=== PATIENT | female | born 1970 | race Caucasian/White ===

== ENCOUNTER 2020-09-10 09:41 | Inpatient (IN) ==
--- NOTE | 2020-09-02 15:57 | Anesthesiology Consultation ---
Date of Service September 02, 2020 Assessment & Plan (1) Encounter for pre-operative examination: Chart Review Chart Review: Acceptable Risk for Surgery (pending preop Covid testing results ) and Patient NOT seen in Pre Admission Testing - Check BSG AM DOS Per nursing assessment 09/02/2020 patient denies any recent travel. No known Covid infection in the past 90 days. No known Covid positive contacts or Covid related symptoms. Patient aware of need of preop Covid testing = will await results. History Surgery Operation Date: 09/10/20 11:55 Proposed Procedures p L4-L5 Decompression Fusion Spinal Cord Monitoring - Landen Quiles, Height/Weight Height: 5 ft 1 in Weight: 111.13 kg Allergies Allergy/AdvReac Type Severity Reaction Status Date / Time sertraline Allergy Unknown RASH Verified 09/02/20 13:50 lurasidone [From Latuda] AdvReac Vomiting Verified 09/02/20 13:50 Medications Home Medications Medication Instructions Recorded Confirmed Last Taken alprazolam 0.5 - 1 mg PO BID PRN 09/02/20 09/02/20 Unknown ascorbic acid (vitamin C) [Vitamin 1 g PO HS 09/02/20 09/02/20 Unknown C] aspirin [Aspir-81] 81 mg PO QAM 09/02/20 09/02/20 Unknown atorvastatin 10 mg PO QAM 09/02/20 09/02/20 Unknown biotin 1,000 mcg PO DAILY 09/02/20 09/02/20 Unknown bupropion HCl 150 mg PO QAM 09/02/20 09/02/20 Unknown cariprazine [Vraylar] 3 mg PO DAILY 09/02/20 09/02/20 Unknown cariprazine [Vraylar] 6 mg PO DAILY 09/02/20 09/02/20 Unknown cetirizine 10 mg PO HS 09/02/20 09/02/20 Unknown cholecalciferol (vitamin D3) 50 mcg PO QAM 09/02/20 09/02/20 Unknown [Vitamin D3] ipratropium-albuterol [Combivent 1 puff INHALATION QID PRN 09/02/20 09/02/20 Unknown Respimat] lamotrigine [Lamictal] 200 mg PO BID 09/02/20 09/02/20 Unknown liraglutide [Victoza 2-Paul] 1.8 mg SUBCUT HS 09/02/20 09/02/20 Unknown losartan 50 mg PO QAM 09/02/20 09/02/20 Unknown montelukast 10 mg PO HS 09/02/20 09/02/20 Unknown multivitamin 1 tab PO QAM 09/02/20 09/02/20 Unknown omega 0-keh-esc-fish oil [Fish Oil] 1 cap PO 3XWK 09/02/20 09/02/20 Unknown omeprazole 20 mg PO QAM 09/02/20 09/02/20 Unknown prazosin 1 mg PO DAILY 09/02/20 09/02/20 Unknown tramadol 50 mg PO Q6H PRN 09/02/20 09/02/20 Unknown trazodone 300 mg PO DAILY 09/02/20 09/02/20 Unknown vortioxetine [Trintellix] 5 mg PO QAM 09/02/20 09/02/20 Unknown Past Medical History Medical History Anxiety Asthma rare use of PRN inh Depression DM type 2 (diabetes mellitus, type 2) HTN (hypertension) Morbid obesity Osteoarthritis PTSD (post-traumatic stress disorder) Schizoaffective disorder, chronic condition Past Family History Family History Other No family history of adverse response to anesthesia Past Surgical History Surgical History History of appendectomy History of arthroscopic knee surgery BL History of cholecystectomy History of colonoscopy History of hysterectomy History of wisdom tooth extraction Social History Smoking Status: Former smoker Do You Dip or Chew Tobacco: No Smoking End Date: quit at age 20 Hx Alcohol Use: Yes Alcohol type: beer, wine and hard liquor alcohol intake frequency: a few times a month Hx Substance Use: No substance use type: does not use Lab Results Anesthesia Preop Results Results Anesthesia Widget: WBC 8.47 K/uL (4.8-10.8) 08/29/20 Hgb 13.1 g/dL (12.0-16.0) 08/29/20 Hct 39.2 % (37-47) 08/29/20 Plt 229 K/uL (130-400) 08/29/20 Na 137 mmol/L (136-145) 08/29/20 K 4.0 mmol/L (3.5-5.1) 08/29/20 Cl 104 mmol/L (98-107) 08/29/20 CO2 26 mmol/L (21-32) 08/29/20 BUN 18 mg/dl (7-18) 08/29/20 Creat 0.75 mg/dl (0.6-1.2) 08/29/20 Glucose Level 101 mg/dl (70-99) H 08/29/20 PT 9.9 Seconds (9.0-12.0) 08/29/20 INR 1.0 (0.9-1.1) 08/29/20 Urine Color Yellow 08/29/20 Urine Appearance Clear (Clear) 08/29/20 Urine pH 6.0 (4.5-7.5) 08/29/20 Urine Specific [place] 1.019 (1.000-1.030) 08/29/20 Urine Protein Negative (Negative) 08/29/20 Urine Glucose (UA) Negative (Negative) 08/29/20 Urine Ketones Negative (Negative) 08/29/20 Urine Blood Negative (Negative) 08/29/20 Urine Nitrite Negative (Negative) 08/29/20 Urine Bilirubin Negative (Negative) 08/29/20 Urine Urobilinogen Negative (Negative) 08/29/20 Urine Leukocyte Esterase Negative (Negative) 08/29/20 Blood Type O Positive 08/29/20 Antibody Screen NEGATIVE 08/29/20 Testing Laboratory Results 08/29/2020 = URINE CULTURE: 3 types of organisms present, all low counts probable skin pastora. Electrocardiogram Date: 08/29/20 Findings: + NSR @ (87 bpm) Normal EKG per cardio. Chest X-Ray Date: 08/29/20 Findings: + NAD
[~2020-09-10 09:41] MED LIST: ACETAMINOPHEN 500 MG TAB PO SCH; CeleBREX 200 MG CAP PO SCH; GABAPENTIN 900 MG DOSE PO SCH; LR 15ML/HR IV SCH; ceFAZolin 2000MG 2,000 MG/15 ML SYR IV SCH
[2020-09-10] MEDS ORDERED: HYDROmorphone INJ 1 MG/ML SYRINGE IV PRN ×2 (10:29→15:08)
[2020-09-10] MEDS ORDERED: ePHEDrine sulfate 50 MG/ML AMP IV PRN (10:29)
[2020-09-10] MEDS ORDERED: ONDANSETRON INJ 2 MG/ML 2 ML VIAL IV PRN ×2 (10:29→15:08)
[2020-09-10] MEDS ORDERED: LABETALOL HCL IV 5 MG/ML 20ML IV PRN (10:29)
[2020-09-10] MEDS ORDERED: ATROPINE SULFATE 0.1 MG/ML 10ML SYR IV PRN (10:29)
[2020-09-10] MEDS ORDERED: MEPERIDINE HCL 25 MG/ML CARP/VIAL IV PRN (10:29)
[2020-09-10] MEDS ORDERED: PHENYLEPHRINE 100MCG/ML 5ML SYR IV PRN (10:29)
[2020-09-10] MEDS ORDERED: DEXAMETHASONE SOD INJ 4 MG/ML VIAL ONE (11:02)
[2020-09-10] MEDS ORDERED: SCOPOLAMINE 1 MG TDSY TD ONE ×2 (11:02→11:05)
[2020-09-10] MEDS ORDERED: LIDOCAINE 2% 2 ML VIAL/AMP(20MG/ML) INFIL ONE (11:02)
[2020-09-10] MEDS ORDERED: ONDANSETRON INJ 2 MG/ML 2 ML VIAL ONE (11:02)
[2020-09-10] MEDS ORDERED: PROPOFOL IV EMULSION 10 MG/ML 20 ML VIAL IV ONE ×2 (11:02→13:03)
[2020-09-10] MEDS ORDERED: ROCURONIUM BROMIDE 10 MG/ML 5 ML VIAL IV ONE ×4 (11:02→12:12)
[2020-09-10] MEDS ORDERED: fentaNYL citrate 100 MCG/2 ML VIAL ONE ×2 (11:02→13:05)
[2020-09-10] MEDS ORDERED: MIDAZOLAM HCL 1 MG/ML 2ML VIAL ONE (11:03)
[2020-09-10] MEDS ORDERED: BUPIVACAINE/EPINEPHRINE 0.5% MPF 1:200,000 30 ML VIAL ONE (11:09)
--- NOTE | 2020-09-10 11:31 | History & Physical Bridge Note ---
Date of Service September 10, 2020 History & Physical Bridge Note I have examined the patient, reviewed the History & Physical and in the interval since the performance of the History & Physical I have noted the following changes of clinical significance: no changes noted
--- NOTE | 2020-09-10 11:33 | History & Physical Report ---
Date of Service September 10, 2020 Assessment & Plan (1) Neurogenic claudication due to lumbar spinal stenosis: Admission and Anticipated Discharge Date Admission Date: L4-L5 decompression fusion History of Present Illness Chief Complaint: Back and leg pain Primary Care Provider: Christina Fowler PA-C This is a 50-year-old female who presents with chronic persistent back and leg pain. Failing course of nonoperative care she is here for surgical invention. Allergies Allergy/AdvReac Type Severity Reaction Status Date / Time sertraline Allergy Unknown RASH Verified 09/10/20 10:08 lurasidone [From Latuda] AdvReac Vomiting Verified 09/10/20 10:08 Home Medications Medication Instructions Recorded Confirmed Type alprazolam 0.5 - 1 mg PO BID PRN 09/02/20 09/10/20 History ascorbic acid (vitamin C) [Vitamin 1 g PO QPM 09/02/20 09/10/20 History C] aspirin [Aspir-81] 81 mg PO QAM 09/02/20 09/10/20 History atorvastatin 10 mg PO QAM 09/02/20 09/10/20 History biotin 1,000 mcg PO HS 09/02/20 09/10/20 History bupropion HCl 150 mg PO QAM 09/02/20 09/10/20 History cariprazine [Vraylar] 3 mg PO HS 09/02/20 09/10/20 History cariprazine [Vraylar] 6 mg PO HS 09/02/20 09/10/20 History cetirizine 10 mg PO QPM 09/02/20 09/10/20 History cholecalciferol (vitamin D3) 50 mcg PO QAM 09/02/20 09/10/20 History [Vitamin D3] ipratropium-albuterol [Combivent 1 puff INHALATION QID PRN 09/02/20 09/10/20 History Respimat] lamotrigine [Lamictal] 200 mg PO BID 09/02/20 09/10/20 History liraglutide [Victoza 2-Paul] 1.8 mg SUBCUT QPM 09/02/20 09/10/20 History losartan 50 mg PO QAM 09/02/20 09/10/20 History montelukast 10 mg PO QPM 09/02/20 09/10/20 History multivitamin 1 tab PO QAM 09/02/20 09/10/20 History omega 8-gvm-lvp-fish oil [Fish Oil] 1 cap PO 3XWK 09/02/20 09/10/20 History omeprazole 20 mg PO QAM 09/02/20 09/10/20 History prazosin 1 mg PO HS 09/02/20 09/10/20 History tramadol 50 mg PO Q6H PRN 09/02/20 09/10/20 History trazodone 300 mg PO HS 09/02/20 09/10/20 History vortioxetine [Trintellix] 5 mg PO QAM 09/02/20 09/10/20 History Past Med/Surg History Medical History Anxiety Asthma rare use of PRN inh Depression DM type 2 (diabetes mellitus, type 2) HTN (hypertension) Morbid obesity Osteoarthritis PTSD (post-traumatic stress disorder) Schizoaffective disorder, chronic condition Surgical History History of appendectomy History of arthroscopic knee surgery BL History of cholecystectomy History of colonoscopy History of hysterectomy History of wisdom tooth extraction Family History Other No family history of adverse response to anesthesia Social History Smoking Status: Former smoker Smoking End Date: quit at age 20; Second Hand Exposure: No; Do You Dip or Chew Tobacco: No; Tobacco Cessation Education Requested by Patient: No Hx Alcohol Use: Yes Alcohol type: beer, wine and hard liquor Hx Substance Use: No Preferred Language: Greek Communication Ability: Effective Inbound Customer Service Agent Required: No Beliefs That Will Affect Care: None Current Living Situation: Spouse Feels Safe at Home: Yes Safety Concerns: Feels Safe At This Time Assistive Devices: Contacts Physical Exam Physical Exam: Patient is alert and oriented Heart regular in rhythm Lungs clear to auscultation Results & Data ([facility]) Vital Signs (Past 12 Hours) Vital Signs Temp Pulse Resp BP Pulse Ox 09/10/20 10:16 36.8 C 80 20 151/106 H 97
[2020-09-10] MEDS ORDERED: GLYCOPYRROLATE 0.2 MG/ML VIAL ONE (12:47)
[2020-09-10] MEDS ORDERED: FLOSEAL HEMOSTATIC MATRIX 10ML TOP ONE (12:47)
[2020-09-10] MEDS ORDERED: NEOSTIGMINE METHYLSULFATE 1 MG/ML 10ML VIAL ONE (12:47)
--- NOTE | 2020-09-10 13:20 | Operative Report ---
Post Operative Report Pre & Post Diagnosis Operation Date: 09/10/20 11:35 Pre-Op Diagnosis: Spondylolisthesis, Lumbar Region Post-Op Diagnosis: Spondylolisthesis, Lumbar Region I identified the patient and participated in the time-out.: Yes Procedure Operation Date: 09/10/20 11:35 Actual Procedures #1 Lumbar decompression bilateral medial facetectomies and foraminotomies L3-4 and L4-5. #2 posterior spinal fusion L4-5. #3 placement of posterior instrumentation L4-5. #4 interbody fusion L4-5. #5 placed a peek cage 13 x 22 mm at L4-5. #6 placement locally harvested morselized autograft in the posterior gutters. #7 placement of infuse collagen sponge, and master graft in the posterior gutters and I factor interbody space. Surgeon Landen Quiles, DO Calculation Clerk Melody Solano Estimated Blood Loss 150 Findings See Below Patient is 5 foot 1 inches tall weighing over 112 kg with a BMI in excess of 46. The patient's body habitus did contribute to significant technical difficulty requiring her deepest retractors longus instruments in order to perform her procedure. This had at least 50% increase to the operative time. Specimens None Indications This is a 50-year-old female who presents with above-mentioned diagnosis after failing since course of nonoperative care is here for the above-mentioned procedure. Description of Procedure Patient was met with identified informed consent obtained. Patient is then taken to the operative suite underwent a patient placed in a prone position the [place] table top Steven frame. All bony prominences well-padded eyes inspected to ensure no external pressure placed upon the. This point the lumbar spine was prepped and draped in a sterile fashion. Sharp dissection with assistance of Bovie cautery performed down to and exposing the lamina and transverse processes of L4-L5 bilaterally. From caudal cephalad fashion complete laminectomy L4 partial laminectomy L3 was performed including bilateral medial facetectomies and foraminotomies addressing severe lateral recess and foraminal stenosis. P edicle screws were then placed in L4 and L5 bilaterally with assistance of fluoroscopy the proper sized andree placed. By way of a transforaminal approach on right complete discectomy was performed endplates curetted to subcortical bleeding bone and a 13 x 22 mm peek cage filled with I factor tapped in position. The rods then locked in final position bilaterally. The transverse processes of L4 and L5 burred to subcortical bleeding bone. Infuse collagen sponge master graft and local autograft was placed in the posterior gutters. 15 round CLYDE drain inserted. The incision was then closed with 1 Vicryl in the fascia 2-0 Vicryl subcutaneously and 4 Monocryl for final skin closure. Steri- Strip sterile dressings placed. Patient will continue PACU stable condition. Please note spinal cord monitoring was utilized at the procedure no changes noted. Lastly Melody Solano was present at the entire surgery involved the patient positioning complex portions of the surgery and final skin closure. I attest to the content of the Intraoperative Record and any orders documented therein. Any exceptions are noted below.
--- NOTE | 2020-09-10 13:45 | Fluoroscopy Report ---
INTRAOPERATIVE RADIOGRAPHS CLINICAL HISTORY: L4-L5 spinal fusion. Fluoroscopy time: 15 seconds. FINDINGS: 2 spot fluoroscopic views of the lumbar spine are presented. There has been discectomy at L 4-L5 with laminectomy and posterior fusion at this level. Interpedicular screws are in place. The ort hopedic hardware appears intact. IMPRESSION: Intraoperative images from lumbar spinal fusion surgery as above. Electronically signed by: Figueroa Baptiste M.D. 09/10/2020 1:43 PM
[2020-09-10] MEDS: fentaNYL citrate 100 MCG/2 ML VIAL IV PRN ×2 (14:08→14:13)
--- NOTE | 2020-09-10 14:23 | Anesthesiology Progress Note ---
Date of Service September 10, 2020 Anesthesia Post Procedure Vital Signs Vital Signs: Temp Pulse Pulse Resp BP Pulse Ox 09/10/20 14:20 36.1 C L 65 12 125/70 97 09/10/20 14:10 67 12 130/80 97 09/10/20 14:00 72 12 115/74 95 09/10/20 13:50 76 12 99/72 L 95 09/10/20 13:44 36.2 C L 73 13 102/78 94 09/10/20 10:16 36.8 C 80 20 151/106 H 97 Pain Intensity Back: Pain Intensity: 2 Transfer of Care Handoff Completed per policy Notes Mental Status: alert / awake / arousable Patient Amnestic to Procedure: Yes Nausea / Vomiting: adequately controlled Pain: adequately controlled Airway Patency, RR, SpO2: stable & adequate BP & HR: stable & adequate Hydration State: stable & adequate Anesthetic Complications: no major complications apparent and Pt Satisfied with anesthetic care
[2020-09-10] MEDS ORDERED: FAMOTIDINE 20 MG TAB PO PRN (15:08)
[2020-09-10] MEDS ORDERED: SODIUM CHLORIDE 0.9% 1000ML 1,000 ML IV SCH (15:08)
[2020-09-10] MEDS ORDERED: SOD PHOSPHATE/SOD BIPHOSPHATE ENEMA 132 ML BTL PR PRN (15:08)
[2020-09-10] MEDS ORDERED: traMADol HCL 50 MG TABLET PO PRN (15:08)
[2020-09-10] MEDS ORDERED: NALOXONE HCL 0.4 MG/1 ML VIAL/CARP IV PRN (15:08)
[2020-09-10] MEDS ORDERED: diphenhydrAMINE Capsule 25 MG CAP PO PRN (15:08)
[2020-09-10] MEDS ORDERED: HYDROmorphone INJ 0.5 MG/0.5 ML SYR IV PRN (15:08)
[2020-09-10] MEDS ORDERED: IPRATROPIUM BROMIDE/ALBUTEROL respimat INH INH PRN (15:08)
[2020-09-10] MEDS ORDERED: MAGNESIUM HYDROXIDE SUSP 30 ML UDC PO PRN (15:08)
[2020-09-10] MEDS ORDERED: DO NOT ADMINISTER FLU VACCINE PRN (15:08)
[2020-09-10] MEDS ORDERED: PROMETHAZINE HCL 12.5 MG in SODIUM CHLORIDE 0.9% 50 ML IV PRN (15:08)
[2020-09-10] MEDS ORDERED: METOCLOPRAMIDE HCL INJ 5 MG/ML 2 ML VIAL IV PRN (15:08)
[2020-09-10] MEDS ORDERED: hydrOXYzine HCl 25 MG TAB PO PRN (15:08)
[2020-09-10] MEDS ORDERED: LORazepam 0.5 MG TAB PO PRN (15:08)
[2020-09-10] MEDS ORDERED: DO NOT ADMINISTER PNEUMOCOCCAL VACCINE PRN (15:08)
[2020-09-10] MEDS ORDERED: ALUMINUM/MAGNESIUM SUSP 30 ML UDC PO PRN (15:08)
[2020-09-10] MEDS ORDERED: ONDANSETRON 4 MG OD TAB PO PRN (15:08)
[2020-09-10] MEDS ORDERED: LORazepam 0.5 MG/1 ML VIAL IV PRN (15:08)
[2020-09-10] MEDS ORDERED: ACETAMINOPHEN 500 MG TAB PO PRN (15:08)
[2020-09-10] MEDS ORDERED: ACETAMINOPHEN 1,000 MG/100 ML VIAL IV PRN (15:08)
[2020-09-10] MEDS ORDERED: PHARMACY GLYCEMIC MGMT CONSULT PRN (15:29)
[2020-09-10] MEDS ORDERED: CARBOHYDRATES FOR HYPOGLYCEMIA PO PRN (15:30)
[2020-09-10] MEDS ORDERED: GLUCAGON FOR INJ 1 MG VIAL IM PRN (15:30)
[2020-09-10] MEDS ORDERED: GLUCOSE 40% GEL 15 GM TUBE PO PRN (15:30)
[2020-09-10] MEDS ORDERED: DEXTROSE 50% 50 ML SYRINGE IV PRN (15:30)
[2020-09-10] MEDS ORDERED: GLUCOSE 10 TABS/TUBE PO PRN (15:30)
[2020-09-10] MEDS ORDERED: Ipratropium HFA Inhaler (Combivent Respimat P&T Subs) INH PRN (15:48)
[2020-09-10] MEDS ORDERED: Albuterol HFA 8 GM Inhaler (Combivent Respimat P&T Subs) INH PRN (15:48)
[2020-09-10] MEDS: CHECK SCOPOLAMINE PATCH PLACEMENT SCH ×2 (16:19→22:30)
[2020-09-10] MEDS: KETOROLAC 30 MG/ML VIAL IV SCH (17:13)
[2020-09-10] MEDS: INSULIN ASPART 100 UNITS/ML 3 ML PEN SC SCH ×2 (17:20→21:05)
--- NOTE | 2020-09-10 17:39 | Internal Medicine Consult Note ---
Date of Consultation September 10, 2020 Assessment & Plan (1) Spondylolisthesis: (2) Neurogenic claudication due to lumbar spinal stenosis: (3) HTN (hypertension): (4) DM type 2 (diabetes mellitus, type 2): (5) Depression: (6) GERD (gastroesophageal reflux disease): (7) Schizoaffective disorder: (8) Depression: (9) Osteoarthritis: (10) Morbid obesity: (11) PTSD (post-traumatic stress disorder): Resume Post Op Care per Surgery Protocol Incentive Spirometry 10x per Hour Resume Relative Home Meds Where Appropriate PT/OT with appropriate fall precautions Transition from IV to PO Pain control DVT Prophylaxis Per Surgery Protocol Monitor Daily Labs History of Present Illness Reason for Consultation: Medical Management Requesting Physician: Dr Quiles Attending Physician: Landen Quiles, DO History of Present Illness 50 yo female c PMH of DM II, HTN, Schizoaffective disorder, OA, PTSD, and Obesity has chronic low back pain that started about 18 months ago. As the disease progressed she began developing neurogenic claudication down both legs R>L. She received a steroid injection or nerve block and it got better for awhile. It came back and she received another block/injection which worked, but not as well. Since that time she got progressively worse and conservative therapy was no linger working and she began seeing Dr Quiles 2 weeks ago. Today he took her to the OR and performed a Lumbar decompression bilateral medial facetectomies and foraminotomies L3-4 and L4-5, a posterior spinal fusion L4-5, placement of posterior instrumentation L4-5, interbody fusion L4-5, peek cage 13 x 22 mm at L4-5, placement locally harvested morselized autograft in the posterior gutters, placement of infuse collagen sponge, and master graft in the posterior gutters and I factor interbody space. This was performed for Spondylolisthesis/Lumbar Stenosis c neurogenic claudication. I saw her in her room post op where she was comfortable and eating dinner. We were asked to see her for post op medical management. FH-Mother and father both , Mother of cancer and father collapsed in front of her, she is an only child and has a healthy DTR Soc-, Occas ETOH, No Drugs or Tob, Disabled, Allergies Allergy/AdvReac Type Severity Reaction Status Date / Time sertraline Allergy Unknown RASH Verified 09/10/20 10:08 lurasidone [From Latuda] AdvReac Vomiting Verified 09/10/20 10:08 Home Medications Medication Instructions Recorded Confirmed Type alprazolam 0.5 - 1 mg PO BID PRN 09/02/20 09/10/20 History ascorbic acid (vitamin C) [Vitamin 1 g PO QPM 09/02/20 09/10/20 History C] aspirin [Aspir-81] 81 mg PO QAM 09/02/20 09/10/20 History atorvastatin 10 mg PO QAM 09/02/20 09/10/20 History biotin 1,000 mcg PO HS 09/02/20 09/10/20 History bupropion HCl 150 mg PO QAM 09/02/20 09/10/20 History cariprazine [Vraylar] 3 mg PO HS 09/02/20 09/10/20 History cariprazine [Vraylar] 6 mg PO HS 09/02/20 09/10/20 History cetirizine 10 mg PO QPM 09/02/20 09/10/20 History cholecalciferol (vitamin D3) 50 mcg PO QAM 09/02/20 09/10/20 History [Vitamin D3] ipratropium-albuterol [Combivent 1 puff INHALATION QID PRN 09/02/20 09/10/20 History Respimat] lamotrigine [Lamictal] 200 mg PO BID 09/02/20 09/10/20 History liraglutide [Victoza 2-Paul] 1.8 mg SUBCUT QPM 09/02/20 09/10/20 History losartan 50 mg PO QAM 09/02/20 09/10/20 History montelukast 10 mg PO QPM 09/02/20 09/10/20 History multivitamin 1 tab PO QAM 09/02/20 09/10/20 History omega 2-kpu-soj-fish oil [Fish Oil] 1 cap PO 3XWK 09/02/20 09/10/20 History omeprazole 20 mg PO QAM 09/02/20 09/10/20 History prazosin 1 mg PO HS 09/02/20 09/10/20 History tramadol 50 mg PO Q6H PRN 09/02/20 09/10/20 History trazodone 300 mg PO HS 09/02/20 09/10/20 History vortioxetine [Trintellix] 5 mg PO QAM 09/02/20 09/10/20 History Patient History Medical History Anxiety Asthma rare use of PRN inh Depression DM type 2 (diabetes mellitus, type 2) HTN (hypertension) Morbid obesity Osteoarthritis PTSD (post-traumatic stress disorder) Schizoaffective disorder, chronic condition Surgical History History of appendectomy History of arthroscopic knee surgery BL History of cholecystectomy History of colonoscopy History of hysterectomy History of wisdom tooth extraction Family History Other No family history of adverse response to anesthesia Social History Smoking Status: Former smoker Smoking End Date: quit at age 20; Second Hand Exposure: No; Do You Dip or Chew Tobacco: No; Tobacco Cessation Education Requested by Patient: No Hx Alcohol Use: Yes Alcohol type: beer, wine and hard liquor Hx Substance Use: No Preferred Language: Yi Communication Ability: Effective Rehab Technician Required: No Beliefs That Will Affect Care: None Current Living Situation: Spouse Feels Safe at Home: Yes Safety Concerns: Feels Safe At This Time Assistive Devices: Contacts Review of Systems Review of Systems: ROS-No Headache, No Visual Changes, No Nausea, No Vomiting, No Fever, No Chills, No Neck Pain or Stiffness, No Chest Pain, No Palpitations, No SOB, No SIMPSON, No Cough, No Sputum, No Wheezing, No Abdominal Pain, No Diarrhea, No Hematemesis, No Hemoptysis, No Unexpected Weight Loss, No Flank pain, No Melena, No Hematochezia, No Frequency, No Urgency, No Burning, No Hematuria, No Rashes, No Diaphoresis. Appetite is Normal, Sore Back, Pain down legs mostly gone Physical Exam Gen-AAO x 3, NAD, Afebrile, obese, Drain in place Head-NCAT, EOMI, PERRLA, Anicteric Sclera, No Posterior Pharyngeal Erythema Neck-Supple, No JVD, No Thyromegaly, No Masses, No LAD, No Bruits Lungs-Clear to Auscultation Bilaterally, No Rales, No Rhonchi, No Wheezing, No Crepitus Chest-No S4, +S1, +S2, No S3, No Murmurs, No Rubs, No Gallops, No Ectopy Abdomen-Soft, Bowel Sounds Present, Non Tender, Non Distended, No Hepatomegaly, No Splenomegaly, No Palpable Masses, No Rebound, No Rigidity, No Guarding Musculoskeletal-Full Range of Motion Bilaterally, No CVAT Extremities-No Cyanosis, No Clubbing, No Edema Nuero-Cranial Nerves II-XII grossly intact, Motor WNL, DTRs WNL, Strength WNL, Non Focal Psych-Normal Mood Results & Data ([facility]) Vital Signs (Past 12 Hours) Vital Signs Temp Pulse Pulse Resp BP Pulse Ox 09/10/20 16:39 66 16 127/90 98 09/10/20 15:44 66 16 131/86 95 09/10/20 15:10 64 16 135/89 97 09/10/20 14:45 36.7 C 68 18 138/85 97 09/10/20 14:30 36.1 C L 68 12 126/80 96 09/10/20 14:20 36.1 C L 65 12 125/70 97 09/10/20 14:10 67 12 130/80 97 09/10/20 14:00 72 12 115/74 95 09/10/20 13:50 76 12 99/72 L 95 09/10/20 13:44 36.2 C L 73 13 102/78 94 09/10/20 10:16 36.8 C 80 20 151/106 H 97 Current Diagnoses Spinal stenosis, lumbar region with neurogenic claudication (09/10/20) Encounter for other preprocedural examination (09/10/20) Allergies sertraline Allergy (Unknown, Verified 09/10/20 10:08) RASH lurasidone [From Latuda] Adverse Reaction (Verified 09/10/20 10:08) Vomiting Height/Weight/Isolation Height 5 ft 1 in Weight 112.3 kg
[2020-09-10] MEDS: oxyCODONE HCL IR 5 MG TAB (IMMEDIATE RELEASE) PO PRN (20:12)
[2020-09-10] MEDS: traZODone HCL 100 MG TAB PO SCH (20:15)
[2020-09-10] MEDS: PRAZOSIN HCL 1 MG CAP PO SCH (20:15)
[2020-09-10] MEDS: MONTELUKAST SODIUM 10 MG TABLET PO SCH (20:15)
[2020-09-10] MEDS: DOCUSATE SODIUM/SENNA 50/8.6MG TAB PO SCH (20:16)
[2020-09-10] MEDS: lamoTRIgine 100 MG TAB PO SCH (20:16)
[2020-09-10] MEDS: CETIRIZINE HCL 10 MG TABLET PO SCH (20:17)
[2020-09-10] MEDS: ceFAZolin 2000MG 2,000 MG/15 ML SYR IV SCH (20:58)
[2020-09-10] MEDS ORDERED: NON-FORMULARY MEDICATION (Cariprazine [Vraylar] 3 mg Capsule) PO SCH (21:00)
[2020-09-10] MEDS ORDERED: NON-FORMULARY MEDICATION (Liraglutide [Victoza 2-Pak] 0.6 mg/0.1 mL (18 mg/3 mL) Pen Injec SQ SCH (21:00)
[2020-09-10] MEDS ORDERED: NON-FORMULARY MEDICATION (Biotin 1,000 mcg Tablet,Chewable) PO SCH (21:00)
[2020-09-10] MEDS ORDERED: CARIPRAZINE 6 MG PO SCH (21:00)
[2020-09-11] MEDS: KETOROLAC 30 MG/ML VIAL IV SCH ×3 (00:33→12:23)
[2020-09-11] MEDS: INSULIN ASPART 100 UNITS/ML 3 ML PEN SC SCH ×6 (00:34→22:03)
[2020-09-11] MEDS: ceFAZolin 2000MG 2,000 MG/15 ML SYR IV SCH (05:12)
[2020-09-11] MEDS: POLYETHYLENE (MIRALAX) 17 GM PACK PO SCH ×3 (05:13→17:14)
[2020-09-11 05:33] LABS: Basophils # (auto) 0.02 K/uL (0-0.2); Basophils % (auto) 0.2 %; Eosinophils # (auto) 0.01 K/uL (0-0.5); Eosinophils % (auto) 0.1 %; Hematocrit (blood only) 34.7 % (37-47); Hemoglobin 11.2 g/dL (12.0-16.0); Immature Granulocytes # (auto) 0.02 K/uL (0.00-0.02); Immature Granulocytes % (auto) 0.2 %; Lymphocytes # (auto) 1.93 K/uL (1.2-3.4); Lymphocytes % (auto) 16.4 %; Mean Corpuscular Hemoglobin 29.3 pg (25-34); Mean Corpuscular Hgb Conc 32.3 g/dL (32-36); Mean Corpuscular Volume 90.8 fL (80-100); Mean Platelet Volume 9.8 fL (7.4-10.4); Monocytes # (auto) 0.88 K/uL (0.11-0.59); Monocytes % (auto) 7.5 %; Neutrophils # (auto) 8.88 K/uL (1.4-6.5); Neutrophils % (auto) 75.6 %; Platelet Count 202 K/uL (130-400); RDW Coefficient of Variation 13.2 % (11.5-14.5); RDW Standard Deviation 43.7 fL (36.4-46.3); Red Blood Count 3.82 M/uL (4.2-5.4); White Blood Count 11.74 K/uL (4.8-10.8)
[2020-09-11 05:52] LABS: BUN Creatinine Ratio 18.6 (10-20); Calcium 8.3 mg/dl (8.5-10.1); Creatinine Clr Calc Pharmacy 113.3 ml/min; Est GFR (African American) 117.6 ml/min; Est GFR (Non-African American) 101.5 ml/min; Potassium 4.4 mmol/L (3.5-5.1)
[2020-09-11] MEDS: oxyCODONE HCL IR 5 MG TAB (IMMEDIATE RELEASE) PO PRN ×2 (07:50→16:22)
[2020-09-11] MEDS: CHECK SCOPOLAMINE PATCH PLACEMENT SCH ×3 (08:23→22:41)
[2020-09-11] MEDS: buPROPion HCl 75 MG TABLET PO SCH (08:24)
[2020-09-11] MEDS: lamoTRIgine 100 MG TAB PO SCH ×2 (08:24→20:30)
[2020-09-11] MEDS: ASPIRIN 81 MG ECTAB PO SCH (08:24)
[2020-09-11] MEDS: MULTIVITAMIN TAB PO SCH (08:25)
[2020-09-11] MEDS: CHOLECALCIFEROL 1,000 UNITS 25 MCG TAB PO SCH (08:25)
[2020-09-11] MEDS: LOSARTAN POTASSIUM 50 MG TAB PO SCH (08:25)
[2020-09-11] MEDS: PANTOprazole 40 MG TAB PO SCH (08:25)
[2020-09-11] MEDS: ATORVASTATIN 10 MG TAB PO SCH (08:25)
--- NOTE | 2020-09-11 08:38 | Hospitalist Progress Note ---
Date of Service September 11, 2020 Assessment & Plan (1) Spondylolisthesis: (2) Neurogenic claudication due to lumbar spinal stenosis: (3) HTN (hypertension): (4) DM type 2 (diabetes mellitus, type 2): (5) Depression: (6) GERD (gastroesophageal reflux disease): (7) Schizoaffective disorder: (8) Osteoarthritis: (9) Morbid obesity: (10) Leukocytosis: (11) Postoperative anemia: (12) PTSD (post-traumatic stress disorder): Did well overnight, More sore today, Drain still in Resume Post Op Care per Surgery Protocol Incentive Spirometry 10x per Hour Resume Relative Home Meds Where Appropriate PT/OT with appropriate fall precautions Transition to PO Pain control DVT Prophylaxis Per Surgery Protocol Monitor Daily Labs ROS-No Headache, No Visual Changes, No Nausea, No Vomiting, No Fever, No Chills, No Neck Pain or Stiffness, No Chest Pain, No Palpitations, No SOB, No SIMPSON, No Cough, No Sputum, No Wheezing, No Abdominal Pain, No Diarrhea, No Hematemesis, No Hemoptysis, No Unexpected Weight Loss, No Flank pain, No Melena, No Hematochezia, No Frequency, No Urgency, No Burning, No Hematuria, No Rashes, No Diaphoresis. Appetite is Normal, sore back Physical Exam Gen-AAO x 3, NAD, Afebrile, drain in place, obese Head-NCAT, EOMI, PERRLA, Anicteric Sclera, No Posterior Pharyngeal Erythema Neck-Supple, No JVD, No Thyromegaly, No Masses, No LAD, No Bruits Lungs-Clear to Auscultation Bilaterally, No Rales, No Rhonchi, No Wheezing, No Crepitus Chest-No S4, +S1, +S2, No S3, No Murmurs, No Rubs, No Gallops, No Ectopy Abdomen-Soft, Bowel Sounds Present, Non Tender, Non Distended, No Hepatomegaly, No Splenomegaly, No Palpable Masses, No Rebound, No Rigidity, No Guarding Musculoskeletal-No CVAT Extremities-No Cyanosis, No Clubbing, No Edema Nuero-Cranial Nerves II-XII grossly intact, Motor WNL, DTRs WNL, Strength WNL, Non Focal Psych-Normal Mood Admission and Anticipated Discharge Date Admission Date: September 10, 2020 Results & Data Results & Data ([facility]) Vital Signs (Past 12 Hours) Vital Signs Temp Pulse Resp BP Pulse Ox 09/11/20 07:07 36.9 C 73 17 123/78 96 09/11/20 03:03 36.4 C L 67 16 109/73 92 09/10/20 22:28 36.5 C 66 17 104/70 97
--- NOTE | 2020-09-11 10:14 | Orthopedic Progress Note ---
Date of Service September 11, 2020 Assessment & Plan (1) Neurogenic claudication due to lumbar spinal stenosis: Admission and Anticipated Discharge Date Admission Date: September 10, 2020 This time we will continue physical therapy monitor CLYDE output anticipate discharge on Wednesday. Subjective Back pain controlled leg symptoms markedly improved Physical Exam Physical Exam: Patient is in the chair at the bedside. She is comfortable. Is excellent strength testing. Results & Data ([facility]) Vital Signs (Past 12 Hours) Vital Signs Temp Pulse Resp BP Pulse Ox 09/11/20 07:07 36.9 C 73 17 123/78 96 09/11/20 03:03 36.4 C L 67 16 109/73 92 09/10/20 22:28 36.5 C 66 17 104/70 97
--- NOTE | 2020-09-11 10:26 | Pharmacy Report ---
Pharmacy Glycemic Short Note 2 - Date of Service September 11, 2020 - Glycemic Short BSG Results (Last 24 hours): 09/10/20 09/10/20 09/10/20 13:46 17:03 20:48 Glucose POC Glucose 111 H 124 H 117 H 09/11/20 09/11/20 09/11/20 03:56 05:10 07:59 Glucose 114 H POC Glucose 123 H 113 H OUTPATIENT ANTIDIABETIC REGIMEN: * Victoza 1.8 mg SC QPM * HbA1c = 5.5% (09/04/20) ASSESSMENT: * 50 yo F admitted postoperatively yesterday s/p spinal fusion. Pharmacy was consulted to assist with inpatient glycemic management. * Preoperative BSG was 125 mg/dL and postoperative BSG was 111 mg/dL. It is unclear whether this patient received any perioperative steroids. * Given postoperative BSG, decided to hold off on any basal insulin yesterday. Patient was started on Novolog based on a weight and stress of 2. * BSG was 124 mg/dL at dinner last night. Patient ate 42 grams of carbs and refused Novolog coverage. HS BSG was then 117 mg/dL. * Fasting BSG was 113 mg/dL this AM, well controlled. * Again, patient refused Novolog coverage with breakfast. Loosened CF and CR this AM. * Dexamethasone 8 mg IV daily has been ordered to start tomorrow morning. Will continue to follow and see if patient will require NPH with steroid administration tomorrow. PLAN FOR INPATIENT GLYCEMIC CONTROL: * Basal insulin * None * Bolus insulin * NovoLog per scale ACHS or Q6hrs while NPO * Goal Range: Low 110 mg/dL - High 140 mg/dL * Correction Factor: 30 mg/dL/unit * Nutritional / Prandial insulin per carb ratio of 1 unit per 10 grams CHO consumed PLAN FOR DISCHARGE: * HbA1c is at goal. Continue Victoza upon patient discharge.
[2020-09-11] MEDS: CETIRIZINE HCL 10 MG TABLET PO SCH (20:29)
[2020-09-11] MEDS: PRAZOSIN HCL 1 MG CAP PO SCH (20:29)
[2020-09-11] MEDS: traZODone HCL 100 MG TAB PO SCH (20:29)
[2020-09-11] MEDS: DOCUSATE SODIUM/SENNA 50/8.6MG TAB PO SCH (20:30)
[2020-09-11] MEDS: MONTELUKAST SODIUM 10 MG TABLET PO SCH (20:30)
[2020-09-11] MEDS: CARIPRAZINE 6 MG PO SCH ×2 (20:37→21:57)
[2020-09-11] MEDS: CARIPRAZINE 3 MG PO SCH ×2 (20:37→21:57)
[2020-09-12 06:33] LABS: Hematocrit (blood only) 30.2 % (37-47); Mean Corpuscular Hemoglobin 29.3 pg (25-34); Mean Corpuscular Hgb Conc 33.1 g/dL (32-36); Mean Corpuscular Volume 88.6 fL (80-100); Mean Platelet Volume 9.9 fL (7.4-10.4); Platelet Count 185 K/uL (130-400); RDW Coefficient of Variation 13.3 % (11.5-14.5); RDW Standard Deviation 43.3 fL (36.4-46.3); Red Blood Count 3.41 M/uL (4.2-5.4); White Blood Count 9.91 K/uL (4.8-10.8)
[2020-09-12] MEDS: oxyCODONE HCL IR 5 MG TAB (IMMEDIATE RELEASE) PO PRN ×3 (07:20→16:04)
[2020-09-12] MEDS: CHECK SCOPOLAMINE PATCH PLACEMENT SCH (07:20)
[2020-09-12 07:29] VITALS: TEMP 99
[2020-09-12 07:29] LABS: BUN Creatinine Ratio 24.9 (10-20); Calcium 8.2 mg/dl (8.5-10.1); Creatinine Clr Calc Pharmacy 89.9 ml/min; Est GFR (Non-African American) 77.7 ml/min; Potassium 3.7 mmol/L (3.5-5.1)
[2020-09-12] MEDS ORDERED: bisacodyL 10 MG SUPP PR PRN (08:00)
--- NOTE | 2020-09-12 08:14 | Orthopedic Progress Note ---
Date of Service September 12, 2020 Assessment & Plan (1) Neurogenic claudication due to lumbar spinal stenosis: Patient is postoperative day two TLIF of L4-5. She is doing well. We will continue physical therapy today. Continue with DVT prophylaxis is in the form of the teds and SCDs. Maintain CLYDE drain. Anticipate discharge home tomorrow Admission and Anticipated Discharge Date Admission Date: September 10, 2020 Supervising Physician Co-Signing Physician Notes Dr. Landen Quiles Chiara Jonesy is postoperative day two TLIF of L4-5. She is doing well. Denies radicular leg pain. Back pain is controlled. CLYDE drain output last shift was 30 cc. She has had a bowel movement yesterday and this morning. Yesterday in physical therapy she is ambulating roughly for 550 feet. Review of Systems Review of Systems: All systems reviewed & are unremarkable except as noted in HPI & below Physical Exam Physical Exam: Alert and oriented x3 No acute distress Lumbar dressing is clean dry and intact with functioning CLYDE drain calves are soft nontender bilaterally with VICENTE hose intact Strength is intact bilateral lower extremities Constitutional: WD/WN, vitals as above Eyes: normal visual hudson by confrontation ENMT: external ear and nose normal, oropharynx normal Neck: normal visual inspection Respiratory: normal respiratory effort Cardiovascular: Extremities: normal capillary refill Chest (Breasts): Chest: normal inspection of chest Musculoskeletal: no cyanosis or clubbing, extremities motor strength 5/5 Extremities: extremities normal to inspection and strength 5/5 throughout Skin: no rashes, warm and dry Neurologic: normal touch/pain/proprioception and moves all extremities Psychiatric: A+Ox3, euthymic affect Results & Data ([facility]) Vital Signs (Past 12 Hours) Vital Signs Temp Pulse Resp BP Pulse Ox 09/12/20 07:29 37.2 C 86 22 108/71 92 09/11/20 23:34 37.6 C H 78 18 100/62 94
--- NOTE | 2020-09-12 08:18 | Hospitalist Progress Note ---
Date of Service September 12, 2020 Assessment & Plan (1) Spondylolisthesis: (2) Neurogenic claudication due to lumbar spinal stenosis: (3) HTN (hypertension): (4) DM type 2 (diabetes mellitus, type 2): (5) Depression: (6) GERD (gastroesophageal reflux disease): (7) Schizoaffective disorder: (8) Osteoarthritis: (9) Morbid obesity: (10) Leukocytosis: (11) Postoperative anemia: (12) PTSD (post-traumatic stress disorder): Did well overnight, More sore today, Drain still in Resume Post Op Care per Surgery Protocol Incentive Spirometry 10x per Hour Resume Relative Home Meds Where Appropriate PT/OT with appropriate fall precautions Transition to PO Pain control DVT Prophylaxis Per Surgery Protocol Monitor Daily Labs, Likely DC tomorrow ROS-No Headache, No Visual Changes, No Nausea, No Vomiting, No Fever, No Chills, No Neck Pain or Stiffness, No Chest Pain, No Palpitations, No SOB, No SIMPSON, No Cough, No Sputum, No Wheezing, No Abdominal Pain, No Diarrhea, No Hematemesis, No Hemoptysis, No Unexpected Weight Loss, No Flank pain, No Melena, No Hematochezia, No Frequency, No Urgency, No Burning, No Hematuria, No Rashes, No Diaphoresis. Appetite is Normal, sore back Physical Exam Gen-AAO x 3, NAD, Afebrile, drain in place, obese Head-NCAT, EOMI, PERRLA, Anicteric Sclera, No Posterior Pharyngeal Erythema Neck-Supple, No JVD, No Thyromegaly, No Masses, No LAD, No Bruits Lungs-Clear to Auscultation Bilaterally, No Rales, No Rhonchi, No Wheezing, No Crepitus Chest-No S4, +S1, +S2, No S3, No Murmurs, No Rubs, No Gallops, No Ectopy Abdomen-Soft, Bowel Sounds Present, Non Tender, Non Distended, No Hepatomegaly, No Splenomegaly, No Palpable Masses, No Rebound, No Rigidity, No Guarding Musculoskeletal-No CVAT Extremities-No Cyanosis, No Clubbing, No Edema Nuero-Cranial Nerves II-XII grossly intact, Motor WNL, DTRs WNL, Strength WNL, Non Focal Psych-Normal Mood Admission and Anticipated Discharge Date Admission Date: September 10, 2020 Results & Data Results & Data ([facility]) Vital Signs (Past 12 Hours) Vital Signs Temp Pulse Resp BP Pulse Ox 09/12/20 07:29 37.2 C 86 22 108/71 92 09/11/20 23:34 37.6 C H 78 18 100/62 94
--- NOTE | 2020-09-12 08:27 | Pharmacy Report ---
Pharmacy Glycemic Sign Off Nt - Date of Service September 12, 2020 - Assessment & Plan ASSESSMENT: * Pharmacy was consulted by Dr. Quiles on 09/10/20 for glycemic control and to write orders per [facility] inpatient glycemic control protocol. * Major changes made by pharmacy to antidiabetic regimen include: * Started Novolog sliding scale insulin * Patient has refused all insulin doses so far * BSGs ranging 111 - 148 mg/dl * Patient will receive a dose of IV dexamethasone this morning which may cause her BSGs to be on the higher end throughout today. * She did not want a dose of NPH to account for this * Please see recommendations for outpatient antidiabetic regimen below. PLAN FOR INPATIENT GLYCEMIC CONTROL: No changes needed to current regimen. * No basal insulin * Continue NovoLog per scale ACHS/Q6hrs while NPO * Goal range = 110 - 140 mg/dl * CF = 30 mg/dl/unit * CR = 1 unit for ever 10 g CHO consumed * Pharmacy is signing off of glycemic consult and will no longer be making adj ustments to inpatient regimen. Please feel free to re-consult if needed. Thank you. DISCHARGE RECOMMENDATIONS: * A1c 5.5% on 09/04/20. Recommend continuing Victoza as an outpatient upon discharge as long as patient is not experiencing any hypoglycemia.
[2020-09-12] MEDS ORDERED: NovoLIN-N (NPH) PER UNIT CHARGE SQ STA (08:44)
[2020-09-12] MEDS: INSULIN ASPART 100 UNITS/ML 3 ML PEN SC SCH ×2 (08:44→12:54)
[2020-09-12] MEDS: MULTIVITAMIN TAB PO SCH (08:45)
[2020-09-12] MEDS: ASPIRIN 81 MG ECTAB PO SCH (08:46)
[2020-09-12] MEDS: LOSARTAN POTASSIUM 50 MG TAB PO SCH (08:46)
[2020-09-12] MEDS: PANTOprazole 40 MG TAB PO SCH (08:46)
[2020-09-12] MEDS: ATORVASTATIN 10 MG TAB PO SCH (08:46)
[2020-09-12] MEDS: buPROPion HCl 75 MG TABLET PO SCH (08:46)
[2020-09-12] MEDS: lamoTRIgine 100 MG TAB PO SCH (08:47)
[2020-09-12] MEDS: CHOLECALCIFEROL 1,000 UNITS 25 MCG TAB PO SCH (08:47)
[2020-09-12] MEDS ORDERED: VORTIOXETINE HYDROBROMIDE PO SCH (09:00)
[2020-09-12] MEDS ORDERED: dexAMETHasone 8 MG in SYRINGE 0 ML IV SCH (09:00)
[2020-09-12 14:59] VITALS: BP 127/73; PULSE 84; O2SAT 91
--- NOTE | 2020-09-16 09:24 | Discharge Summary ---
Date of Service September 16, 2020 Admission HPI Per Admitting Provider This is a 50-year-old female who presents with chronic persistent back and leg pain. Failing course of nonoperative care she is here for surgical invention. Admission Exam (Per Admitting) Constitutional WD/WN, vitals as above Eyes normal visual hudson by confrontation ENMT external ear and nose normal, oropharynx normal Neck normal visual inspection Respiratory normal respiratory effort Cardiovascular Extremities: normal capillary refill Chest (Breasts) Chest: normal inspection of chest Musculoskeletal no cyanosis or clubbing, extremities motor strength 5/5 Extremities: extremities normal to inspection and strength 5/5 throughout Skin no rashes, warm and dry Neurologic normal touch/pain/proprioception and moves all extremities Psychiatric A+Ox3, euthymic affect Discharge Data Consultations 09/10/20 15:08 Consult Hospitalist Routine Procedures Performed Operation Date: 09/10/20 11:35 Actual Procedures p L4-L5 Decompression Fusion Spinal Cord Monitoring - Landen Quiles DO Hospital Course (1) Spondylolisthesis: Patient had an uneventful hospital course. She was discharged home on postoperative day 2. Pain was improved and controlled. Passing flatus and had a bowel movement. Up and ambulatory. Lab values are stable. CLYDE drain diminishing. Discharge Instructions ACTIVITY RECOMMENDATIONS: SELF CARE INSTRUCTIONS AFTER THORACIC/LUMBAR FUSIONS 1. You may walk to your tolerance. It is good exercise for your legs and back. Expect some back and intermittent leg aches and pains. 2. You may perform "counter-top" level activities (make a sandwich, adolfo with a project, etc.). 3. No bending or lifting of more than 10 pounds or back twisting of any nature (roll like a log when turning in bed). 4. You may ride in a car for 20-30 minutes at a time. No driving until after your first visit with your doctor. 5. Frequent changes of position and restricting sitting to 30 minutes at a time will help limit the amount of back spasms and stiffness you may experience. 6. You may discontinue the use of ambulatory aids (cane, crutches, etc.) once your strength and confidence allow. 7. You may clinical services assistant the shower and let water strike your incision when you arrive home at least once daily. Do not take a tub bath, sit in a hot tub or go into a swimming pool until after your first recheck in the office. SPECIAL CARE INSTRUCTIONS: VERY IMPORTANT TO READ AND REVIEW A. Your surgical incision has been closed with a cosmetic suture under the skin that will dissolve in about 6 weeks. In 14 days, you can use a pair of clean scissors and cut the suture that is left outside of the skin at the ends of your incision. 1. The small skin tapes can be removed 7 days after surgery if they have not fallen off by that point. 2. You may keep the wound open to air as much as possible to promote healing after post-op day number 5 unless told otherwise by your doctor. 3. If you think the wound looks like it is becoming infected (redness or worsening drainage) and/or you are experiencing fever, chill or worsening back pain and muscle spasms, contact the office so that we may evaluate you as soon as possible. B. Complications are uncommon, but please contact us if you have any signs or symptoms of: 1. wound infection (fever higher than 102.5 degrees F, redness, separation of wound, drainage, or increasing pain from the incision) 2. blood clots in legs (pain, swelling, redness and warmth in legs) 3. urinary tract infection (fever higher than 102.5 degrees F, burning upon urination or increased frequency of urination) 4. nerve problems (inability to walk on your toes or heels, numbness, loss of bowel or bladder control) 5. any other symptoms that concern you C. Please call the office at if you have any concerns or ques tions about your operation or recovery. D. No smoking! Smoking drastically decreases the chance of a solid fusion. E. Do not take any anti-inflammatory medications (Indocin, Advil, Motrin, Aspirin, Naprosyn, etc.) as these may inhibit the chance of a solid fusion. Tylenol is okay to take for pain. MANAGING PAIN AFTER SPINAL SURGERY 1. Narcotic medication is intended for short-term use and will be provided for surgical pain. Surgical pain usually lasts for a period of 4-6 weeks. Narcotic medication includes Percocet, Vicodin, Darvocet, Tylenol #3 or Lortab. 2. Longer-term pain is more appropriately treated with non-narcotic medication such as Tylenol ES. 3. Muscle spasm is not appropriately treated with narcotics. Muscle relaxers such as Soma, Flexeril or Skelaxin can be used along with Tylenol ES. 4. Remember that we all live with some "aches and pains". This is not unusual or uncommon after an injury or as we get older. a. Back pain is expected and may include muscle spasms for 4 to 6 weeks after surgery. The pain should gradually improve. If the pain worsens for no apparent reason, please contact the office. b. Intermittent leg pain may also be experienced and should not be concerned about unless it worsens for no apparent reason. If so, please contact the office. 5. We will provide appropriate medication within the normal guidelines of their prescribed use. We will also be very cautious and aware of potential abuse and extended duration of patients' medication needs. a. Pain medications are for your comfort and to assist with sleep and rest so that the tissue can heal. They are not provided in order to return to normal activity and should not be used through the day. To do so or worsening pain at night can result from ongoing tissue damage and development of tolerance to the prescribed medicine. 6. Please allow 2-3 days to process refills. Prescriptions will not be mailed but must be picked up at the office. FOLLOW UP VISIT: Keep your scheduled follow-up appointment. Any questions, please call the office at . Supervising Physician Co-Signing Physician Notes Dr. Landen Quiles
== END 2020-09-12 16:25 | disposition home or self-care (01) | DRG 454 ==
LOC: ASU 09:41 → 3E 13:48